=== PATIENT | male | born 1960 | race American Indian/Alaskan Native ===

== ENCOUNTER 2021-09-30 16:21 | Emergency (ER) | payer SELFPAY ==
--- NOTE | 2021-09-30 16:50 | Emergency Department Report ---
Stated Complaint: STOMACH PAIN/WEIGHT LOST Time Seen by Provider: 09/30/21 16:48 - HPI History of Present Illness: Several week history of abdominal pain, nausea, vomiting, and weight loss. He denies fever. - ROS Review of Systems: Complains of abdominal pain, nausea, vomiting, unexplained weight loss. - Exam Physical Exam: Alert and oriented. MSE screening note: Focused history and physical exam performed. Due to findings the following was ordered: CBC, CMP, lipase, troponin, UA, EKG. Patient to the evaluated by provider when he gets a room in the back. ED Disposition for MSE Condition: Stable
[2021-09-30 17:58] LABS: Hematocrit 44.9 % (35.5-45.6); Hemoglobin 15.2 gm/dl (11.8-15.2); Mean Corpuscular HGB Conc 34 % (32-34); Mean Corpuscular Volume 97 fl (84-94); Platelet Count 210 K/mm3 (140-440); Red Blood Count 4.61 M/mm3 (3.65-5.03)
[2021-09-30 18:08] LABS: Alanine Aminotransferase 29 units/L (7-56); Albumin 3.6 g/dL (3.9-5); BUN/Creatinine Ratio 9; Blood Urea Nitrogen 9 mg/dL (9-20); Calcium 9.6 mg/dL (8.4-10.2); Hemolysis Index 5
[2021-09-30 18:18] LABS: Mucus,Urine 3+ /HPF
[2021-09-30 18:24] LABS: Color,Urine Amber (Yellow)
[2021-09-30 18:25] LABS: Bilirubin,Urine Negative (Negative); Blood,Urine Negative (Negative); PH,Urine 8.5 (5.0-7.0); Urobilinogen,Urine < 2.0 mg/dL (<2.0)
[2021-10-01] MEDS ORDERED: FAMOTIDINE 20 MG TAB PO ONE (02:12)
[2021-10-01] MEDS ORDERED: ONDANSETRON 4 MG ODT TAB PO ONE ×2 (02:12→04:41)
[2021-10-01] MEDS ORDERED: SUCRALFATE 1 GM/10 ML ORAL LIQD PO ONE (02:42)
[2021-10-01] MEDS ORDERED: SUCRALFATE 1 GM TAB PO ONE (02:42)
[2021-10-01] MEDS ORDERED: HYDROcodone/ACETAMINOPHEN 7.5-325MG TAB PO ONE (04:40)
--- NOTE | 2021-10-01 05:40 | Cat Scan Report ---
CT ABDOMEN AND PELVIS WITHOUT CONTRAST INDICATION / CLINICAL INFORMATION: ABDOMINAL PAIN - L.L.Q.. TECHNIQUE: Axial CT images were obtained through the abdomen and pelvis without IV contrast. All CT scans at this location are performed using CT dose reduction for ALARA by means of automated exposure control. COMPARISON: None available. FINDINGS: Evaluation limited due to lack of intravenous contrast. Lung bases are clear. Liver and gallbladder a re unremarkable. There is moderate peripancreatic inflammatory stranding. Added soft tissue fullness in the body of th e pancreas at the origin of the celiac trunk. The pancreatic duct appears dilated in the body and geovanni l. No organized peripancreatic collection. Spleen and adrenals are unremarkable. No acute renal abnormality. No hydronephrosis. Bladder is unrem arkable. Small hiatal hernia. Stomach is otherwise unremarkable. Small bowel and colon demonstrate no evidence of mechanical obstruction or inflammation. No free air, free fluid, or focal fluid collection. Several mildly enlarged peripancreatic lymph node s, may be reactive. No acute osseous findings. No aggressive osseous lesions. IMPRESSION: 1. Moderate peripancreatic inflammatory stranding, most consistent with acute pancreatitis. Evaluatio n is limited due to lack of intravenous contrast, though there is added soft tissue fullness in the r egion of the body of the pancreas with mildly dilated pancreatic duct in the body and tail. Recommend further evaluation with contrast-enhanced CT, as underlying pancreatic mass cannot be excluded. 2. No other acute findings. Other incidental findings as above. Signer Name: Mauro Chisholm MD Signed: 10/01/2021 5:35 AM Workstation Name: [id number]
--- NOTE | 2021-10-01 06:01 | Emergency Department Report ---
ED Abdominal Pain HPI - General Chief Complaint: Abdominal Pain Stated Complaint: STOMACH PAIN/WEIGHT LOST Time Seen by Provider: 09/30/21 16:48 Source: patient Mode of arrival: Ambulatory Limitations: No Limitations - History of Present Illness Initial Comments: Patient is a 61-year-old -[place] male with a history of chronic alcoholism who presents to the ED with complaint of acute onset persistent diffuse abdominal pain that radiates to the lower abdomen especially in the left lower quadrant area with nausea and vomiting for the last 1 week. Patient states that the pain is especially worse with food, stating that in the last 24 hours he has not been able to keep anything down because of persistent nausea and vomiting and lack of appetite. Patient admits to heavy alcohol abuse. Patient denies dizziness, syncope, chest pain, shortness of breath, diarrhea, dysuria, urinary frequency and urgency, testicular pain, hematemesis, hemat ochezia, low back pain, change in vision or palpitations. MD Complaint: abdominal pain (mid-abdominal pain, nausea and vomiting), other (Nausea and vomiting, weight loss) -: week(s) (1) Location: periumbilical Radiation: LLQ Migration to: no migration Severity scale (0 -10): 8 Quality: cramping, aching, sharp Consistency: constant Improves With: nothing Worsens With: eating, vomiting Associated Symptoms: denies other symptoms, nausea, vomiting, anorexia. denies: diarrhea, fever, chills, constipation, dysuria, hematemesis, hematochezia, melena, syncope, other - Related Data Previous Rx's Medication Instructions Recorded Last Taken Type Famotidine [Pepcid] 20 mg PO BID #60 tablet 10/01/21 Unknown Rx HYDROcodone/APAP 5-325 [[place] 1 each PO Q6HR PRN #12 tablet 10/01/21 Unknown Rx 5/325] Ketorolac [Toradol] 10 mg PO Q8H PRN #20 tab 10/01/21 Unknown Rx Ondansetron [Zofran Odt] 4 mg PO Q8HR PRN #20 tab.rapdis 10/01/21 Unknown Rx Allergies Allergy/AdvReac Type Severity Reaction Status Date / Time No Known Allergies Allergy Verified 09/30/21 16:49 ED Review of Systems ROS: Stated complaint: STOMACH PAIN/WEIGHT LOST Other details as noted in HPI Constitutional: denies: chills, fever Eyes: denies: eye pain, eye discharge, vision change ENT: denies: ear pain, throat pain Respiratory: denies: cough, shortness of breath, wheezing Cardiovascular: denies: chest pain, palpitations Endocrine: no symptoms reported Gastrointestinal: abdominal pain, nausea, vomiting. denies: diarrhea Genitourinary: denies: urgency, dysuria Musculoskeletal: denies: back pain, joint swelling, arthralgia Skin: denies: rash, lesions Neurological: denies: headache, weakness, paresthesias Psychiatric: denies: anxiety, depression Hematological/Lymphatic: denies: easy bleeding, easy bruising ED Past Medical Hx - Medications Home Medications: Home Medications Medication Instructions Recorded Confirmed Last Taken Type Famotidine [Pepcid] 20 mg PO BID #60 tablet 10/01/21 Unknown Rx HYDROcodone/APAP 5-325 [[place] 1 each PO Q6HR PRN #12 tablet 10/01/21 Unknown Rx 5/325] Ketorolac [Toradol] 10 mg PO Q8H PRN #20 tab 10/01/21 Unknown Rx Ondansetron [Zofran Odt] 4 mg PO Q8HR PRN #20 tab.rapdis 10/01/21 Unknown Rx ED Physical Exam - General Limitations: No Limitations General appearance: alert, in no apparent distress - Head Head exam: Present: atraumatic, normocephalic, normal inspection - Eye Eye exam: Present: normal appearance, PERRL, EOMI Pupils: Present: normal accommodation - ENT ENT exam: Present: normal exam, normal orophraynx, mucous membranes moist, TM's normal bilaterally, normal external ear exam - Neck Neck exam: Present: normal inspection, full ROM. Absent: tenderness - Respiratory Respiratory exam: Present: normal lung sounds bilaterally. Absent: respiratory distress, wheezes, rales, rhonchi, chest wall tenderness, accessory muscle use, decreased breath sounds, prolonged expiratory - Cardiovascular Cardiovascular Exam: Present: regular rate, normal rhythm, normal heart sounds. Absent: systolic murmur, diastolic murmur, rubs, gallop - GI/Abdominal GI/Abdominal exam: Present: soft, tenderness (Palpable diffuse abdominal tenderness), normal bowel sounds. Absent: guarding, rebound, hyperactive bowel sounds, hypoactive bowel sounds, organomegaly, bruit - Extremities Exam Extremities exam: Present: normal inspection, full ROM, normal capillary refill. Absent: tenderness - Back Exam Back exam: Present: normal inspection, full ROM. Absent: tenderness, CVA tenderness (R), CVA tenderness (L), muscle spasm, paraspinal tenderness, vertebral tenderness - Neurological Exam Neurological exam: Present: alert, oriented X3, CN II-XII intact, normal gait, reflexes normal - Psychiatric Psychiatric exam: Present: normal affect, normal mood, anxious - Skin Skin exam: Present: warm, dry, intact, normal color. Absent: rash ED Course Vital Signs 09/30/21 16:49 Temperature 98.8 F Pulse Rate 61 Respiratory 16 Rate Blood Pressure 131/94 [Left] O2 Sat by Pulse 99 Oximetry ED Medical Decision Making - Lab Data Result diagrams: 09/30/21 17:26 09/30/21 17:26 - Radiology Data Radiology results: report reviewed, [place] [address] Cat Scan Report Signed Patient: CECIL WERNER MR#: [id number] : 1960 Acct:[id number] Age/Sex: 61 / M ADM Date: 09/30/21 Loc: ED Attending Dr: Ordering Physician: CATHIE ROMERO Date of Service: 10/01/21 Procedure(s): CT abdomen pelvis wo con Accession Number(s): [id number] cc: CATHIE ROMERO CT ABDOMEN AND PELVIS WITHOUT CONTRAST INDICATION / CLINICAL INFORMATION: ABDOMINAL PAIN - L.L.Q.. TECHNIQUE: Axial CT images were obtained through the abdomen and pelvis without IV contrast. All CT scans at this location are performed using CT dose reduction for ALARA by means of automated exposure control. COMPARISON: None available. FINDINGS: Evaluation limited due to lack of intravenous contrast. Lung bases are clear. Liver and gallbladder are unremarkable. There is moderate peripancreatic inflammatory stranding. Added soft tissue fullness in the body of the pancreas at the origin of the celiac trunk. The pancreatic duct appears dilated in the body and tail. No organized peripancreatic collection. Spleen and adrenals are unremarkable. No acute renal abnormality. No hydronephrosis. Bladder is unremarkable. Small hiatal hernia. Stomach is otherwise unremarkable. Small bowel and colon demonstrate no evidence of mechanical obstruction or inflammation. No free air, free fluid, or focal fluid collection. Several mildly enlarged peripancreatic lymph nodes, may be reactive. No acute osseous findings. No aggressive osseous lesions. IMPRESSION: 1. Moderate peripancreatic inflammatory stranding, most consistent with acute pancreatitis. Evaluation is limited due to lack of intravenous contrast, though there is added soft tissue fullne ss in the region of the body of the pancreas with mildly dilated pancreatic duct in the body and tail. Recommend further evaluation with contrast-enhanced CT, as underlying pancreatic mass cannot be excluded. 2. No other acute findings. Other incidental findings as above. Signer Name: Mick Clark MD Signed: 10/01/2021 5:35 AM Workstation Name: [id number] Transcribed By: RHINA Dictated By: MICK CLARK MD Electronically Authenticated By: MICK CLARK MD Signed Date/Time: 10/01/21534 DD/ 8 TD/TT: - Medical Decision Making This is a 61-year-old -[place]aur[place] male with a history of chronic alcoholism who presents to the ED with complaint of acute onset persistent diffuse abdominal pain that radiates to the lower abdomen especially in the left lower quadrant area with nausea and vomiting for the last 1 week. Patient states that the pain is especially worse with food, stating that in the last 24 hours he has not been able to keep anything down because of persistent nausea and vomiting and lack of appetite. Patient admits to heavy alcohol abuse. In the ED, patient is alert and oriented x3 and is not in any distress. Lab test results were reviewed and are all nonactionable. Patient was treated for pain in the ED and also given antiemetics. Abdomen pelvis CT scan without contrast showed moderate peripancreatic inflammatory stranding, most consistent with acute pancreatitis. Evaluation is limited due to lack of intravenous contrast, though there is added soft tissue fullness in the region of the body of the pancreas with mildly dilated pancreatic duct in the body and tail. On reevaluation, patient's pain is well controlled medication. Patient was discharged home on pain medications and antiemetics as well as antacids and was advised to maintain a clear liquid diet for 12 to 24 hours, while taking me dications and to follow-up with his primary care physician in 7 to 10 days for reevaluation. Patient was also advised to consider quitting alcohol abuse to improve on his symptoms since the symptoms are likely to be chronic. Patient was advised to return to the emergency department immediately if symptoms get worse. - Differential Diagnosis Appendicitis; pancreatitis; diverticulitis; UTI; kidney stone; GERD; Critical care attestation.: If time is entered above; I have spent that time in minutes in the direct care of this critically ill patient, excluding procedure time. ED Disposition Clinical Impression: Abdominal pain in male, Nausea and vomiting in adult patient Acute pancreatitis without infection or necrosis Qualifiers: Pancreatitis type: alcohol induced Qualified Code(s): K85.20 - Alcohol induced acute pancreatitis without necrosis or infection Disposition: HOME / SELF CARE / HOMELESS Is pt being admited?: No Does the pt Need Aspirin: No Condition: Stable Instructions: Acute Pancreatitis, [id number], Nausea and Vomiting, Adult, [id number], Abdominal Pain, Adult, [id number] Additional Instructions: All lab test results were reviewed and are all nonactionable. Abdomen pelvis CT scan without contrast showed moderate peripancreatic inflammatory stranding, most consistent with acute pancreatitis. Evaluation is limited due to lack of intravenous contrast, though there is added soft tissue fullness in the region of the body of the pancreas with mildly dilated pancreatic duct in the body and tail. Therefore maintain a clear liquid diet for the next 12-24 or 48 hours, take medication as needed for pain, drink plenty of fluids, avoid alcoholic beverages to improve any symptoms. Follow-up with your primary care physician in 7 to 10 days for reevaluation. Return to the ED immediately if symptoms get worse. Prescriptions: HYDROcodone/APAP 5-325 [[place] 5/325] 1 each PO Q6HR PRN #12 tablet PRN Reason: Pain Famotidine [Pepcid] 20 mg PO BID #60 tablet Ketorolac [Toradol] 10 mg PO Q8H PRN #20 tab PRN Reason: Pain Ondansetron [Zofran Odt] 4 mg PO Q8HR PRN #20 tab.rapdis PRN Reason: Nausea Referrals: [facility] [Provider Group] - 3-5 Days Forms: Work/School Release Form(ED) Time of Disposition: 05:58 Print Language: GUAMANIAN
[2021-10-01 06:40] VITALS: BP 137/95
--- NOTE | 2021-10-01 17:52 | Electrocardiograph Report ---
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
== END 2021-10-01 07:00 | disposition home or self-care (01) ==
LOC: ED 16:21
DX: R10.9 Unspecified abdominal pain (principal); R11.2 Nausea with vomiting, unspecified; K85.20 Alcohol induced acute pancreatitis without necrosis or infection
CPT/HCPCS: 36415; 74176; 80053; 81001; 83690; 84484; 85027; 93005; 99284; J3490; Q0162

== ENCOUNTER 2021-11-07 13:52 | Emergency (ER) | payer MEDICARE ==
[2021-11-07 14:26] VITALS: BP 130/100
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
[2021-11-07] MEDS ORDERED: HYDROcodone/ACETAMINOPHEN 5-325 MG TAB PO ONE (15:17)
[2021-11-07] MEDS ORDERED: IBUPROFEN 600 MG TAB PO ONE (15:17)
== END 2021-11-07 15:51 | disposition home or self-care (01) ==
LOC: ED 13:52
DX: M54.2 Cervicalgia (principal); M54.50 Low back pain, unspecified; M25.519 Pain in unspecified shoulder; V89.2XXA Person injured in unspecified motor-vehicle accident, traffic, initial encounter; Y93.89 Activity, other specified; Y92.89 Other specified places as the place of occurrence of the external cause; Y99.8 Other external cause status
CPT/HCPCS: 99282